=== PATIENT | female | born 1960 | race Caucasian/White ===

== ENCOUNTER → 2016-10-30 | Outpatient (CLI) | payer MEDICARE ==
[~2016-10-30] MED LIST: ALBU0.63 IH; BACL10TA PO; CALC-44 PO; CETI10TA22 PO; DOCU-27 PO; DULO60CA6 PO; ESZO2TAB33 PO; FLUT1DIS5 IH; LEVO75TA5 PO; LORA0.5T PO; METH10TA2 PO; METH5TAB2 PO; MONT10TA6 PO; MULT1TAB52 PO; OMEG10006 PO; OMEP20CA9 PO; OXYC1TAB7 PO; PROAIR HFA8.5 GM IH; PROC5TAB14 PO; PSEU120T9 PO; SENN8.6T99 PO; TOPI100T39 PO; ZOLM5TAB13 PO
--- NOTE | 2016-10-31 01:43 | PAIN ---
DATE OF SERVICE: 10/30/2016 DIAGNOSES: 1. Cervicalgia with cervical degenerative disk disease. 2. Chronic lumbar radiculopathy. 3. Chronic thoracic radiculopathy. 4. Left femoral neuropathy. 5. Right knee joint pain. HISTORY OF PRESENT ILLNESS: The patient is a 56-year-old female who returns for followup status post medication management with both methadone and oxycodone. The patient returns after a 2-month followup reporting good pain relief with her medications at this time with her neck and low back. The patient reports no significant side effects, reports that she is doing very well with about 75% improvement with the medication most times, had some increased complaints with weather changes and ____ pressure changes with the way her neck and back feels, but otherwise doing fairly well. Pain is rated as 6 on a scale of 10 that is sharp, alternating with aching. The patient reports otherwise she is doing most of her daily activities with fairly good control, ease and comfort and without difficulty sleeping at night, without any new motor or sensory deficits or other complaints. The patient's old chart was reviewed as was her current medication regimen and updated. Current review of systems is updated today as well. The patient's K-TRACS reporting has been appropriate to date as has her urinalysis. PHYSICAL EXAMINATION: VITAL SIGNS: Today shows blood pressure of 113/74, pulse 79, respirations 18, temperature 98.1 degrees Fahrenheit, height is 5 feet 5 inches, weighs 159 pounds. GENERAL: The patient is awake, alert, oriented, appropriate, very pleasant demeanor. HEENT: Shows normocephalic, atraumatic. Extraocular movements are intact and symmetrical. The patient wears eye glasses. Oral cavity shows mucous membranes moist and pink. Dentition is intact. NECK: Shows anterior throat supple without palpable lymphadenopathy noted. Swallow reflex is symmetrical. CHEST: Shows normal on inspection. Breath sounds are clear to auscultation bilaterally. HEART: Shows S1 and S2 clear. ABDOMEN: Soft, nontender, nondistended. No palpable organomegaly. No rebound or guarding demonstrated. BACK: The patient's back shows spine grossly midline. The lumbar paraspinous muscle shows some moderate tenderness with palpation diffusely as is the cervical paraspinous musculature. Again, it is the superior medial and lateral trapezius and the inferior aspect of the cervical paraspinous musculature without significant atrophy, hypertrophy or radiation of pain. PLAN: Options were discussed with the patient. At this time, we will refill the patient's methadone as she reports she has not needed any Percocet refill at this time. The patient was given instruction as well as side effects to be aware of with medication. We will follow up in approximately 90 days or sooner if necessary. CRISTIAN SOLIS MD DR: BERTHA/leonel JOB#: [id number] / [id number]
== END | disposition home or self-care (01) ==
LOC: PNCL 09:13
PROVIDERS: ATTEND Anesthesiology
DX: M50.30 Other cervical disc degeneration, unspecified cervical region (principal); M54.2 Cervicalgia; M54.16 Radiculopathy, lumbar region; M54.14 Radiculopathy, thoracic region; G57.22 Lesion of femoral nerve, left lower limb; M25.561 Pain in right knee
CPT/HCPCS: G0463

== ENCOUNTER → 2017-01-22 | Outpatient (CLI) | payer MEDICARE ==
--- NOTE | 2017-01-23 07:04 | PAIN ---
DATE OF SERVICE: 01/22/2017 PROGRESS NOTE FOR PAIN CLINIC DIAGNOSES: 1. Cervicalgia with cervical degenerative disk disease. 2. Chronic lumbar radiculopathy. 3. Chronic thoracic radiculopathy. 4. Left femoral neuropathy. 5. Right knee joint pain. HISTORY OF PRESENT ILLNESS: The patient is a 56-year-old female who returns for followup status post medication management with both methadone and Percocet. The patient reports she has been doing fairly well with this, has been on a very stable steady regimen with about 70-75% improvement with medications and without specific side effects. The patient is still using her spinal cord stimulator with good results, reports she is having some difficulty charging it on some days, but other days, it will charge just fine. The patient reports no new motor or sensory deficits or other complaints, still pain in the low back, neck, shoulders, bilateral lower extremities, more on the right than the left without significant deficits. The patient reports she is doing well with the medications, again no side effects, reports her pain is a 6 on a scale of 10 currently overall. PHYSICAL EXAMINATION: VITAL SIGNS: The patient's blood pressure is 110/74, pulse 91, respirations are 20, temperature is 97.9 degrees Fahrenheit. Height is 5 feet 5 inches, weight is 148 pounds. GENERAL: The patient is awake, alert, oriented, appropriate, has a very pleasant demeanor. HEENT: Shows normocephalic, atraumatic. Extraocular movements are intact and symmetrical. Oral cavity, mucous membranes are moist and pink. Dentition is intact. NECK: Shows anterior throat supple without palpable lymphadenopathy noted. Swallow reflex is symmetrical. Neck shows good rotational motion both laterally as well as extension and flexion without significant tenderness. CHEST: Shows normal with inspection. Breath sounds clear to auscultation bilaterally. HEART: Shows S1 and S2 clear. No murmurs auscultated. ABDOMEN: Soft, nontender, nondistended. No palpable organomegaly is noted. BACK: Shows spine grossly in the midline with a normal appearing thoracic kyphosis and mild flattening of the lumbar lordotic curvature. Well-healed surgical scarring is noted in the lumbar distribution from spinal cord stimulator placement, easily palpable stimulator battery over the right posterior gluteus. Paraspinous musculature in the cervical as well as the thoracic and lumbar distribution shows some diffuse tenderness, but without specific radiation, atrophy, hypertrophy or trigger points. PLAN: Options were discussed with the patient. At this time, the patient's old chart was reviewed as was her current medication regimen and updated. Current review of systems updated today as well. We will refill the patient's methadone as well as Percocet with instructions and side effects to be aware of discussed. The patient also will check with [facility] for evaluation of her spinal cord stimulator if the charging issue becomes more problematic. The patient will be given a 90-day prescription for the medications with instructions and side effects to be aware of discussed. Follow up in 90 days or sooner if necessary. CRISTIAN SOLIS MD DR: BERTHA/leonel JOB#: [id number] / [id number]
== END | disposition home or self-care (01) ==
LOC: PNCL 09:08
PROVIDERS: ATTEND Anesthesiology
DX: M50.30 Other cervical disc degeneration, unspecified cervical region (principal); M54.16 Radiculopathy, lumbar region; M54.14 Radiculopathy, thoracic region; G62.9 Polyneuropathy, unspecified; M25.561 Pain in right knee
CPT/HCPCS: 99212

== ENCOUNTER → 2017-07-09 | Outpatient (CLI) | payer MEDICARE ==
[~2017-07-09] MED LIST changes: +DOCU-109 PO; -DOCU-27 PO; +ESZO2TAB21 PO; -ESZO2TAB33 PO; -TOPI100T39 PO; +TOPI100T42 PO
--- NOTE | 2017-07-09 12:40 | PAIN ---
DATE OF SERVICE: 07/09/2017 DIAGNOSES: 1. Cervicalgia with cervical degenerative disk disease. 2. Chronic lumbar radiculopathy. 3. Chronic thoracic radiculopathy. 4. Left femoral neuropathy. 5. Right knee joint pain. HISTORY OF PRESENT ILLNESS: The patient is a 57-year-old female, who returns for followup status post medication management with both methadone and oxycodone. The patient reports she has been doing fairly well with this, has been on very stable regimen with medication, but approximately a 75% improvement overall with the medications without significant side effects. The patient reports occasional constipation, but is well controlled with increased hydration and occasional [id number] laxatives or stool softeners. The patient is having some spasming pain in the mid back and low back, as well as her neck. The patient reports her neck is her chief complaint and main source of pain with her chronic pain syndromes, the patient reports increased with activity, standing, walking, changing positions; better with lying down, but reports it awakens her about every 3 hours at night from sleep. She has to reposition, apply heat, take pain medication, get out of bed, reposition to get back to sleep, but she is able to get back to sleep. She is not able to forget what is causing the pain exactly, again multiple etiologies of pain involved. The patient reports significant pain across the upper back, mid back, low back, shoulders and neck. It has been worse with radiation to bilateral upper extremities. Also, bilateral radiation to the lower extremities, somewhat worse on the left than the right, also chronic knee pain on the right side with ambulation much worse with climbing steps and standing and walking. The patient reports pain as a 9 on a scale of 10 at its worst, is a 5 on average, is 5 at least as well. The patient reports it is an aching, sharp, shooting, cramping, stabbing and can be constant at times, again decreased significantly with her current regimen of methadone and current regimen of oxycodone, which she takes only sparingly and usually less than 1 a day. PHYSICAL EXAMINATION: VITAL SIGNS: The patient's blood pressure is 113/45, pulse 58, respirations 18, temperature 98.9 degrees Fahrenheit. Height is 5 feet 5 inches, weighs 145 pounds. GENERAL: The patient is awake, alert, oriented, appropriate, very pleasant demeanor. HEENT: Shows normocephalic, atraumatic. Extraocular movements are intact and symmetrical. Oral cavity, mucous membranes are moist and pink. Dentition is intact. NECK: Shows anterior throat supple without palpable lymphadenopathy noted. Swallow reflex is symmetrical. CHEST: Shows normal on inspection. Breath sounds are clear to auscultation bilaterally. HEART: Shows S1 and S2 clear. No murmurs auscultated. ABDOMEN: Soft, nontender, nondistended. No palpable organomegaly. There is no rebound or guarding demonstrated. BACK: The patient's back shows grossly midline spine with some slight flattening of cervical lordotic curvature. Thoracic kyphotic curvature is normal and lordotic lumbar curvature is slightly flattened as well. With palpation, cervical paraspinous musculature shows some moderate tenderness throughout the middle and low cervical paraspinous musculature bilaterally as well as in the superior, medial and lateral trapezius with palpation, but without radiation of pain. The patient shows good rotational motion of cervical spine but somewhat guarded with extension with significant pain reported in the base of the neck and shoulders, but not with forward flexion. Right and left lateral rotation past 45 degrees is intact, but very guarded as well and deliberate but able to rotate past 45 degrees right and left. The patient's low back shows moderate tenderness with palpation in the lumbar paraspinous musculature throughout as in the middle and lower thoracic paraspinous muscle, which appears symmetrical but have moderate tenderness with palpation and very firm musculature, equal in appearance bilaterally. The patient shows no tenderness over the spinous processes, sacrum or sacroiliac region. Shows good rotation and motion of the lumbar spine with some minor tenderness with extension, but not with forward flexion, right and left lateral rotation which she performs greater than 10 degrees bilaterally. EXTREMITIES: Show upper extremity deep tendon reflexes 1+ in the biceps and triceps tendons. Motor exam is approximately 4 on a scale of 5 with heel seat sander strength, but equal and symmetrical. Biceps and triceps flexion again 3-4 on a scale of 5 on the left and 5/5 on the right. Peripheral pulses are 2+ radial distribution. No peripheral edema is noted. Lower extremities show deep tendon reflexes 1+ in the patellar and tendo calcaneus tendons are equal. Motor exam is approximately 4 on a scale of 5, but symmetrical with dorsiflexion, extension, quadriceps and hamstring flexion and fairly equal bilaterally. Peripheral pulses are 1+ in the posterior tibial and dorsalis pedis pulses. No peripheral edema is noted in the lower extremities as well. The patient is walking with a significant limp favoring her right lower extremity when she ambulates, not using any assistive devices, but she is holding on to the wall, chair rails, etc. when she is ambulating and walking, changing positions, difficult with standing from a sitting position and vice versa. The patient noticeably leans on her left leg to release weight off her right leg when she is standing and walking, slightly interthoracic hunched position with walking as well. Options were discussed with the patient and the patient's old chart was reviewed as her current medication regimen updated. Current review of systems updated today as well. We will refill the patient's methadone as well as oxycodone for a 3-month prescription, also Cymbalta and baclofen, which she does well with each of these without significant side effects. The patient was cautioned as medication regimen as well as side effects to be aware of each of the medications. The patient has had appropriate K-TRACS reporting as well as appropriate urinalysis to date and again has been on fairly stable regimen with reasonable control about 75% of her pain with medications as long as her activity is not too significant or repetitive. The patient will follow up in approximately 90 days or sooner as necessary. CRISTIAN SOLIS MD DR: BERTHA/leonel JOB#: [id number] / [id number]
== END | disposition home or self-care (01) ==
LOC: PNCL 10:15
PROVIDERS: ATTEND Anesthesiology
DX: M50.30 Other cervical disc degeneration, unspecified cervical region (principal); M54.16 Radiculopathy, lumbar region; M54.14 Radiculopathy, thoracic region; G62.9 Polyneuropathy, unspecified; M25.561 Pain in right knee; K59.00 Constipation, unspecified; G89.29 Other chronic pain
CPT/HCPCS: G0463

== ENCOUNTER → 2017-10-01 | Outpatient (CLI) | payer MEDICARE ==
--- NOTE | 2017-10-01 12:44 | PAIN ---
DATE OF SERVICE: 10/01/2017 DIAGNOSES: 1. Cervicalgia with cervical degenerative disk disease. 2. Chronic lumbar radiculopathy. 3. Chronic thoracic radiculopathy. 4. Left femoral neuropathy. 5. Right knee joint pain. HISTORY OF PRESENT ILLNESS: The patient is a 57-year-old female who returns for followup status post medication management with methadone and oxycodone, also taking baclofen for muscle relaxation and Cymbalta. The patient reports she is doing quite well and has been on very stable regimen with about a 75%-80% improvement with her pain in her neck, shoulders, mid back, upper back, low back, still with some increased pain as she has been doing some increased activity at home, getting things prepared from the summer into the winter, taking care of yard work, landscaping and doing some raking of leaves and general duties about the house, which has been increasing her pain to some extent. The patient reports she is controlling it to a good extent with the medications and without side effects. The patient reports her pain as a 9 on a scale of 10 at its worst, is a 6-7 on average, is a 5 today and is 5 at its least. It is a stabbing, aching, sharp, tight with constant, severe, unbearable pain in the knee. The mid back, shoulders and neck show some aching and stabbing pain occasionally, but again worse with activity, which she has increased slightly. Otherwise, the patient reports she is doing fairly well. She is sleeping fairly well at night, sleeps about 6-7 hours a night. Occasionally, the pain awakens her from sleep, but only if she has had a very active day prior to that. She can reposition, take pain medication or get out of bed and she is able to get back to sleep most days. The patient reports no new motor or sensory deficits, no new bowel or bladder incontinence or other complaints. PHYSICAL EXAMINATION: VITAL SIGNS: The patient's blood pressure is 137/94, pulse 83, respirations 18, temperature 97.8 degrees Fahrenheit. She is 5 feet 5 inches, weighs 146 pounds. GENERAL: The patient is awake, alert, oriented, appropriate, very pleasant demeanor. HEENT: Head shows normocephalic, atraumatic. The patient wears eyeglasses. Extraocular movements are intact, symmetrical. Oral cavity: Mucous membranes moist and pink. Dentition is intact. NECK: Shows anterior throat supple without palpable lymphadenopathy noted. Swallow reflex is symmetrical. CHEST: Shows normal with inspection. Breath sounds are clear to auscultation bilaterally. HEART: Shows S1, S2 clear. No murmurs auscultated. ABDOMEN: Soft, nontender, nondistended. No palpable organomegaly is noted. No rebound or guarding demonstrated. BACK: Shows spine grossly in midline. Slight exaggeration of thoracic kyphosis, some mild flattening lumbar lordotic curvature. Paraspinous musculature no previous lesions, rashes or abnormalities noted in the skin. The patient's neck shows moderate tenderness to palpation of the cervical paraspinous musculature, but is symmetrical in appearance. No radiation, no trigger points. The patient has good rotational motion of the cervical spine, both laterally as well as extension and flexion without significant pain reported. EXTREMITIES: Lower extremities show deep tendon reflexes at 1+ in the patellar and tendo calcaneus tendons. Motor exam is strong with 5/5 dorsiflexion, extension and equal. No peripheral edema is noted. Peripheral pulses are 1+ posterior tibial and 2+ in the radial distribution bilaterally. No peripheral edema bilaterally in the upper or lower extremities. Options were discussed with the patient. The patient's old chart was reviewed as her current medication regimen and updated. Current review of systems is updated today as well. We will refill the patient's methadone as well as oxycodone. The patient will require 1 month prescription of oxycodone as she has not been using this, otherwise she has been trying to cut down on it fairly significantly again with no side effects. The patient was given instruction as well as side effects to be aware of with each of her medications. A 90-day supply for baclofen and Cymbalta was given and she can use a mail order service for these as well. The patient will follow up in approximately 90 days or sooner, was counseled on activity level as well as medication regimen and side effects to be aware of. CRISTIAN SOLIS MD DR: BERTHA/leonel JOB#: [id number] / [id number]
== END | disposition home or self-care (01) ==
LOC: PNCL 09:40
PROVIDERS: ATTEND Anesthesiology
DX: M50.30 Other cervical disc degeneration, unspecified cervical region (principal); G57.22 Lesion of femoral nerve, left lower limb; M25.561 Pain in right knee
CPT/HCPCS: G0463

== ENCOUNTER → 2018-04-29 | Outpatient (CLI) | payer MEDICARE | END | disposition home or self-care (01) | LOC: PNCL 11:30 | DX: M50.10 Cervical disc disorder with radiculopathy, unspecified cervical region (principal); M25.561 Pain in right knee; G62.9 Polyneuropathy, unspecified | CPT/HCPCS: G0463 ==

== ENCOUNTER → 2018-08-05 | Outpatient (CLI) | payer MEDICARE ==
[2017-10-18 10:30] VITALS: BP 133/74
[~2018-08-05] MED LIST changes: +BUDE180A IH; +LEVO500T59 PO; +NICO2LOZ BC
--- NOTE | 2018-08-05 22:04 | PAIN ---
DATE OF SERVICE: 08/05/2018 DIAGNOSES: 1. Cervicalgia with cervical degenerative disk disease. 2. Chronic lumbar radiculopathy. 3. Chronic thoracic radiculopathy. 4. Left femoral neuropathy. 5. Right knee joint pain with a spinal cord stimulator therapy. HISTORY OF PRESENT ILLNESS: The patient is a 58-year-old female who returns for followup status post spinal cord stimulator therapy as well as medication management with methadone, Percocet, also Cymbalta and baclofen. The patient reports she has been doing fairly well with this, has been on very stable regimen without significant side effects. The patient reports she is not taking the Cymbalta anymore, has not been taking it for over a month, cannot tell any difference without it and therefore, we will just discontinue it. The patient reports otherwise the baclofen is doing well as is the Percocet and methadone, which she is taking on schedule. The patient reports pain has reduced significantly with this from 8 to a 5, at 8 is worse, 6 on average and a 5 at its least and is a 5 today. The patient reports pain in the base of the neck and shoulders, upper back, mid back, low back, bilateral lower extremities, especially in the right side and some right knee pain that is also involved. The patient reports she has a cramping, stabbing pain radiating, becoming constant, is sharp at times, shooting in all these areas, especially in the low back. The patient reports her spinal cord stimulator; however, is still working well. She is having no difficulty charging it, so basically getting good paraesthesia, but is not controlling the pain 100%. The patient reports she has difficulty sleeping at night, but not secondary to the pain as always. She has not been able to sleep well for years, sleeps about 4 hours at a time. The patient reports no new motor or sensory deficits, no bowel or bladder incontinence or other complaints. PHYSICAL EXAMINATION: VITAL SIGNS: The patient's blood pressure 112/71, pulse 88, respirations 18, temperature 97.1 degrees Fahrenheit. Height 5 feet 5 inches, weighs 153 pounds. GENERAL: The patient is awake, alert, oriented, appropriate, very pleasant demeanor. HEENT: Head is normocephalic, atraumatic. Extraocular movements are intact and symmetrical. Oral cavity: Mucous membranes moist and pink. Dentition is intact. NECK: Shows anterior throat supple without palpable lymphadenopathy noted. Swallow reflex symmetrical. CHEST: Shows normal with inspection. Breath sounds clear to auscultation bilaterally. HEART: Shows S1, S2 clear. No murmurs auscultated. ABDOMEN: Soft, nontender, nondistended. No palpable organomegaly is noted. No rebound or guarding demonstrated. BACK: Shows spine grossly in the midline. Normal appearing thoracic kyphosis and lumbar lordotic curvature. Lumbar paraspinous muscle shows symmetrical on inspection. Well-healed surgical scarring is noted. With palpation shows some moderate tenderness only diffusely in the low lumbar distribution, also tenderness in the cervical distribution diffusely in the inferior aspect as well, but without radiation. The patient has good rotational motion of cervical spine with some minor tenderness with extension, but not with forward flexion, right or left lateral rotation. Lumbar spine shows some minor tenderness with right and left lateral rotation as well as extension and flexion, but again only to a minor extent. EXTREMITIES: The patient's extremities show upper extremity deep tendon reflexes 2+ in the biceps, triceps tendons. Lower extremities are 1+ patellar and tendo calcaneus. Peripheral pulses are 1+ posterior tibial bilaterally. No peripheral edema is noted. Options were discussed with the patient. The patient's old chart was reviewed as her current medication regimen updated. Current review of systems updated today as well. We will proceed with refilling patient's methadone as well as baclofen and Percocet with instructions, side effects to be aware of with each of the medication. The patient has had appropriate K-TRACS reporting as well as appropriate urinalysis to date. We will refill this for a 90-day period. The patient will follow up in approximately 90 days or sooner if necessary. CRISTIAN SOLIS MD DR: BERTHA/leonel JOB#: [id number] / [id number]
== END | disposition home or self-care (01) ==
LOC: PNCL 10:17
PROVIDERS: ATTEND Anesthesiology
DX: M50.30 Other cervical disc degeneration, unspecified cervical region (principal); M54.16 Radiculopathy, lumbar region; M54.14 Radiculopathy, thoracic region; M25.561 Pain in right knee
CPT/HCPCS: G0463

== ENCOUNTER → 2019-01-12 | Outpatient (CLI) | payer MEDICARE ==
[2017-10-18 10:30] VITALS: BP 133/74
[~2019-01-12] MED LIST changes: +ALBU2.5V8 IH; +OMEP20CA10 PO; -OMEP20CA9 PO; -PROAIR HFA8.5 GM IH
--- NOTE | 2019-01-12 22:06 | PAIN ---
DATE OF SERVICE: 01/12/2019 PROGRESS NOTE FOR PAIN CLINIC DIAGNOSES: 1. Cervicalgia with cervical degenerative disk disease. 2. Chronic lumbar radiculopathy with chronic thoracic radiculopathy and spinal cord stimulation therapy. 3. Left femoral neuropathy. 4. Right knee joint pain. HISTORY OF PRESENT ILLNESS: The patient is a 58-year-old female who returns for followup status post medication management with both methadone and oxycodone, also baclofen. The patient reports she has been doing very well, has been on a very stable regimen. She is trying decrease the use of her Percocet and has been able to do that fairly successfully, still has 4 to 5 tablets left and it has been about 6 months since the prescription was written of 100 tablets. The patient reports still pain in the base of the neck and shoulder as well as the low back and mid back. Spinal cord stimulator is functioning well. She is keeping this charged with good stimulation and good distribution of stimulation in the low back. The patient reports her pain is a 7 on a scale of 10 at its worst, 5 on average, 5 at its least and is a 5 today. The patient reports it is aching, dull and tight in the back as well as the neck and a constant pain in the back of the neck and shoulders, sometimes disturbs her from sleep, but not every night. The patient reports no new motor or sensory deficits, no new bowel or bladder incontinence. Again, no side effects with the medication. The patient reports overall about 75-80% improvement with the medications where she function, increased distance walking and doing work activities, household activities and traveling with greater ease and comfort with the pain medicine, but without significant side effects. PHYSICAL EXAMINATION: VITAL SIGNS: The patient's blood pressure is 131/82, pulse 76, respirations 18, temperature is 97.8 degrees Fahrenheit, height is 5 feet 5 inches, weighs 144 pounds. GENERAL: The patient is awake, alert, oriented, appropriate, very pleasant demeanor. HEENT: Head shows normocephalic, atraumatic. Extraocular movements are intact and symmetrical. Oral cavity: Mucous membranes are moist and pink. Dentition is intact. NECK: Shows anterior throat supple without palpable lymphadenopathy noted. Swallow reflex is symmetrical. CHEST: Shows normal on inspection. Breath sounds are clear to auscultation bilaterally. HEART: Shows S1, S2 clear. No murmurs auscultated. ABDOMEN: Soft, nontender, nondistended. No palpable organomegaly is noted. No rebound or guarding demonstrated. BACK: Shows spine grossly in the midline. Normal cervical lordotic curvature and thoracic kyphotic curvature, some minor flattening of lumbar lordotic curvature. Cervical paraspinous muscle shows symmetrical on inspection, on palpation shows some moderate tenderness diffusely, but only diffusely in the inferior aspect of the cervical paraspinous muscles bilaterally, but without radiation and without trigger points. The patient has good rotational motion of cervical spine, both laterally as well as extension and flexion without significant pain or difficulty. Low back shows normal on inspection with paraspinous musculature, on palpation shows some moderate tenderness throughout the upper, middle and lower distribution of the paraspinous muscles bilaterally, but again without asymmetry, without trigger points and without radiation of pain bilaterally. The patient shows good rotational motion, both laterally greater than 10 degrees right and left as well as extension greater than 10 degrees, forward flexion 45 degrees without significant pain reported. EXTREMITIES: Show upper extremity deep tendon reflexes 2+ in the biceps and triceps tendons. Lower extremities are 1+ in the patellar and tendo calcaneus tendons. Motor exam is 5/5 with counselor manager strength, bicep and tricep flexion. Lower extremities show 5/5 dorsiflexion and extension. Peripheral pulses are 2+ radial and 1+ posterior tibial. No peripheral edema is noted bilaterally in any of the extremities. Options were discussed with the patient. The patient's old chart was reviewed as her current medication regimen updated. Current review of systems updated today as well. We will refill the patient's methadone as well as oxycodone and baclofen with a 90-day supply. The patient has had appropriate K-TRACS reporting as well as appropriate urinalysis to date. We will obtain a urinalysis today as well as part of routine screening. The patient will follow up at the clinic in approximately 90 days or sooner if necessary. The patient was given instructions as well as side effects to be aware of with each of the medications and will follow up as scheduled. CRISTIAN SOLIS MD DR: BERTHA/leonel JOB#: [id number] / [id number]
== END | disposition home or self-care (01) ==
LOC: PNCL 10:49
PROVIDERS: ATTEND Anesthesiology
DX: M50.30 Other cervical disc degeneration, unspecified cervical region (principal); M54.15 Radiculopathy, thoracolumbar region; M25.561 Pain in right knee
CPT/HCPCS: G0463

== ENCOUNTER → 2019-06-23 | Outpatient (CLI) | payer MEDICARE ==
[2017-10-18 10:30] VITALS: BP 133/74
[~2019-06-23] MED LIST changes: +MONT10TA49 PO; -MONT10TA6 PO
--- NOTE | 2019-06-23 10:44 | EKG ---
[facility] [address] [place] [address] Test Date: 2019-06-23 Test Time: 10:39:34 Pat Name: MARLIN LUJAN Department: Room: Gender: F Documentation Nurse: SUMANTH : 1960 Requested By: CRISTIAN SOLIS Order Number: [id number] Reading MD: Measurements Intervals [place] Rate: 80 P: 64 NV: 138 QRS: 56 QRSD: 76 T: 52 QT: 372 QTc: 433 Interpretive Statements SINUS RHYTHM NO SPECIFIC ECG ABNORMALITIES RI6.01 Unconfirmed report No previous ECG available for comparison
== END | disposition home or self-care (01) ==
LOC: EKG 10:22
PROVIDERS: ATTEND Anesthesiology
DX: F11.90 Opioid use, unspecified, uncomplicated (principal)
CPT/HCPCS: 93005

== ENCOUNTER → 2019-07-06 | Outpatient (CLI) | payer MEDICARE ==
[2017-10-18 10:30] VITALS: BP 133/74
--- NOTE | 2019-07-07 02:03 | PAIN ---
DATE OF SERVICE: 07/06/2019 PROGRESS NOTE FOR PAIN CLINIC DIAGNOSES: 1. Cervicalgia with cervical degenerative disk disease. 2. Chronic lumbar radiculopathy. 3. Chronic thoracic radiculopathy. 4. Left femoral neuropathy. 5. Right knee joint pain and with spinal cord stimulation therapy. HISTORY OF PRESENT ILLNESS: The patient is a 59-year-old female, who returns for followup status post medication management with both methadone and oxycodone. The patient reports she had been doing very well with this and only taking oxycodone very sparingly, but is not getting much sleep at night and methadone that decreased her pain significantly by about 70%, but without any side effects. The patient reports still some difficulty sleeping, but her spinal cord stimulators are main complaint today, is not holding the charge well. She is having to update her bobbin hauler once to twice a day, although it is getting good paresthesia coverage in the low back and left lower extremity. It is still not holding the charge well. Her [employer] rep was present today to check the machine and is at its end of life or close with the battery generator. The patient reports pain is 7 on a scale of 10 at its worst in the past week, 5 on average, 4 at its least and is a 5 today. It is aching, stabbing, burning in the low back, radiating, constant, sometimes in the lower leg, again better with medications without side effects and with spinal cord stimulator, but not completely relieved. The patient reports no new bowel or bladder incontinence. No new side effects or other complaints. PHYSICAL EXAMINATION: VITAL SIGNS: The patient's blood pressure 136/96, pulse 91, respirations are 18, temperature 98.2 degrees Fahrenheit, height is 5 feet 5 inches, and weighs 138 pounds. GENERAL: The patient is awake, alert, oriented, appropriate, very pleasant demeanor. HEENT: Shows normocephalic, atraumatic. Extraocular movements are intact and symmetrical. Oral cavity: Mucous membranes moist and pink. Dentition is intact. NECK: Shows anterior throat supple without palpable lymphadenopathy noted. Swallow reflex symmetrical. CHEST: Shows normal on inspection. Breath sounds are clear to auscultation bilaterally. HEART: Shows S1, S2 clear. No murmurs auscultated. ABDOMEN: Soft, nontender, nondistended. No palpable organomegaly is noted. No rebound or guarding demonstrated. BACK: Shows spine grossly in the midline. Normal-appearing thoracic kyphosis and lumbar lordotic curvature is slightly flattened. A well-healed surgical scar is noted. Easily palpable spinal cord stimulator battery is noted on the left low back superior gluteus without tenderness and is getting some minor mobility. EXTREMITIES: The patient's lower extremities show deep tendon reflexes 1+/4 in the patellar and tendo calcaneus tendons. Motor exam is strong with dorsiflexion and extension rated at 5/5 and equal. Peripheral pulses are 1+ posterior tibia. No peripheral edema is noted. Options were discussed with the patient. The patient's old chart was reviewed as her current medication regimen updated. Current review of systems updated today as well. We will make arrangements to surgically replace the spinal cord stimulator generator. The patient was also given refill medications, methadone and oxycodone and baclofen with instructions and side effects to be aware of. The patient has had appropriate K-TRACS ____ as well as appropriate urinalysis to date. We will make the prescription for 3-month period. The patient will return to clinic for a stimulator battery replacement that is as scheduled. CRISTIAN SOLIS MD DR: BERTHA/leonel JOB#: [id number] / [id number]
== END | disposition home or self-care (01) ==
LOC: PNCL 10:08
PROVIDERS: ATTEND Anesthesiology
DX: M54.16 Radiculopathy, lumbar region (principal); M54.14 Radiculopathy, thoracic region; M50.30 Other cervical disc degeneration, unspecified cervical region; M25.561 Pain in right knee; M40.294 Other kyphosis, thoracic region; M40.46 Postural lordosis, lumbar region
CPT/HCPCS: G0463

== ENCOUNTER 2019-07-30 09:44 | Day surgery (SDC) | payer MEDICARE ==
[~2019-07-30 09:44] MED LIST changes: +BACITRACIN 50,000 UNIT in IV NORMAL SALINE 500ML BAG 500 ML IRR ONE; +HYDROmorphone 2 MG/ML VIAL IV PRN; +IOHEXOL 300 MG/ML 50 ML VIAL. ONE; +IV RINGERS,LACTATED 1000ML 1,000 ML IV SCH; +LIDOCAINE 1% PF 2 ML VIAL. ID PRN; +MORPHINE SULFATE 2 MG/ML VIAL. IV PRN; +ONDANSETRON PF 4 MG/2 ML VIAL. IV PRN; +PROCHLORPERAZINE 10 MG/2 ML VIAL. IV PRN; +fentaNYL PF VIAL 100 MCG/2 ML VIAL IV PRN
[2019-07-30] MEDS ORDERED: LIDOCAINE 2% PF 5 ML VIAL. ONE (10:19)
[2019-07-30] MEDS ORDERED: PROPOFOL 20 ML IV ONE ×2 (10:19→11:33)
[2019-07-30] MEDS ORDERED: MIDAZOLAM HCL/PF 2 MG/2 ML VIAL. ONE (11:31)
[2019-07-30] MEDS ORDERED: KETAMINE HCL IN NACL, ISO-OSM 50 MG/5 ML SYRINGE ONE (11:32)
[2019-07-30] MEDS ORDERED: LIDOCAINE 1% Multi-Dose 20 ML VIAL. INJ ONE (11:40)
[2019-07-30] MEDS ORDERED: LIDOCAINE 1%/EPI 1:100,000 20 ML VIAL. INJ ONE (11:40)
--- NOTE | 2019-07-30 12:09 | DISCH ---
DISCHARGE INSTRUCTIONS Condition on Discharge Condition on Discharge: Stable Activity After Discharge Activity Instructions for Disc: Activity as tolerated, Avoid exertion Bathing Instructions: Shower-keep dressing dry Lifting Instructions after Dis: No heavy lifting Driving Instructions after Dis: Do not drive today Diet after Discharge Diet after Discharge: Regular Contacting the DR. after DC Call your doctor for: Concerns you may have CRISTIAN SOLIS MD Jul 30, 2019 12:09
--- NOTE | 2019-07-30 12:13 | PDOC4 ---
OPERATIVE NOTE Date: Date: Jul 30, 2019 Pre-Op Diagnosis: chronic radiculopathy-lumbar Post-Op Diagnosis: same Procedure Performed: SCS generator replacement/removal Surgeon: Ocsar Anesthesia Type: MAC IV sedation Blood Loss: 2.5ml Specimans Obtained: original SCS generator Findings: see dictation Complications: none Operative Note: see dictation CRISTIAN SOLIS MD Jul 30, 2019 12:13
[2019-07-30 12:45] VITALS: BP 118/64
--- NOTE | 2019-07-30 13:14 | PAIN ---
DATE OF SERVICE: 07/30/2019 PREOPERATIVE DIAGNOSES: Chronic lumbar radiculopathy with chronic degenerative disk disease and low back pain. POSTOPERATIVE DIAGNOSES: Chronic lumbar radiculopathy with chronic degenerative disk disease and low back pain. PROCEDURE: Spinal cord stimulator generator battery replacement and removal of old unit. BLOOD LOSS: Less than 5 mL. COMPLICATIONS: None. ANESTHESIA: IV sedation, monitored anesthetic care. COMPLICATIONS: None. DESCRIPTION OF PROCEDURE: The patient was consented for spinal cord stimulator generator removal and replacement with risks discussed including, but not limited to bleeding, infection, possibility of poor pain control with new generator. Postoperative wound dehiscence and postoperative pain as well as poor results regarding long-term pain control with the new generator. The patient understands and wished to proceed. The patient was taken to operating room #1 and under her own power placed in the prone position with pressure points padded. ASA monitors placed. Breath sounds clear bilaterally. IV sedation was started. The patient's back and left posterior gluteus was then prepped using a Betadine prep using 3 minutes for drying time before draping. The patient was then draped in the usual sterile fashion. Using a sterile technique, the area of the left posterior-superior gluteus to the area of the preexisting spinal cord stimulator generator was examined using 1% lidocaine with 1:200,000 epinephrine. The transverse view of anesthetic was used subcutaneously and still with a transversely without difficulty using a #15 blade scalpel was incised through the anesthetized skin through the subcutaneous layer into the fascia exposing the pocket, containing the spinal cord stimulator generator. The generator was removed using both blunt and dull dissection. Local hemorrhage was controlled using pressure and irrigation. The old battery resisting stimulator generator was then expressed from the pocket without difficulty. Pocket was examined and showed no abnormalities using an Nathaniel wrench supplied with the [employer] product. The locked down screws were loosened on the old generator, wires were removed intact and shown to be in very good condition x 2. The pocket was again examined and then irrigated with bacitracin irrigation x 3 reexamined with no local hemorrhage noted throughout. New generator was then examined and the wires were placed in the battery and using the same torque screwdriver supplied with [employer] unit that was locked into place. Impedance was checked twice with good impedance at all leads verified. At this time, the pocket was re-examined and fitted with new stimulator generator, which fit into the pocket in the excellent fashion. The pocket was then closed using 2-0 absorbable Vicryl interrupted stitches over the fascial layers and then 3-0 running suture for skin closure. Steri-Strips, Mastisol and island dressing were then applied. The patient tolerated procedure well, had no immediate complications and was transferred to the recovery room in good awake and in stable condition. CRISTIAN SOLIS MD DR: BERTHA/leonel JOB#: [id number] / [id number]
--- NOTE | 2019-08-02 11:18 | OP ---
DATE OF SURGERY: 07/30/2019 PREOPERATIVE DIAGNOSES: Chronic lumbar radiculopathy with chronic degenerative disk disease and low back pain. POSTOPERATIVE DIAGNOSES: Chronic lumbar radiculopathy with chronic degenerative disk disease and low back pain. PROCEDURE: Spinal cord stimulator generator battery replacement and removal of old unit. BLOOD LOSS: Less than 5 mL. COMPLICATIONS: None. ANESTHESIA: IV sedation, monitored anesthetic care. COMPLICATIONS: None. DESCRIPTION OF PROCEDURE: The patient was consented for spinal cord stimulator generator removal and replacement with risks discussed including, but not limited to bleeding, infection, possibility of poor pain control with new generator. Postoperative wound dehiscence and postoperative pain as well as poor results regarding long-term pain control with the new generator. The patient understands and wished to proceed. The patient was taken to operating room #1 and under her own power placed in the prone position with pressure points padded. ASA monitors placed. Breath sounds clear bilaterally. IV sedation was started. The patient's back and left posterior gluteus was then prepped using a Betadine prep using 3 minutes for drying time before draping. The patient was then draped in the usual sterile fashion. Using a sterile technique, the area of the left posterior-superior gluteus to the area of the preexisting spinal cord stimulator generator was examined using 1% lidocaine with 1:200,000 epinephrine. The transverse view of anesthetic was used subcutaneously and still with a transversely without difficulty using a #15 blade scalpel was incised through the anesthetized skin through the subcutaneous layer into the fascia exposing the pocket, containing the spinal cord stimulator generator. The generator was removed using both blunt and dull dissection. Local hemorrhage was controlled using pressure and irrigation. The old battery resisting stimulator generator was then expressed from the pocket without difficulty. Pocket was examined and showed no abnormalities using an Nathaniel wrench supplied with the [employer] product. The locked down screws were loosened on the old generator, wires were removed intact and shown to be in very good condition x 2. The pocket was again examined and then irrigated with bacitracin irrigation x 3 reexamined with no local hemorrhage noted throughout. New generator was then examined and the wires were placed in the battery and using the same torque screwdriver supplied with [employer] unit that was locked into place. Impedance was checked twice with good impedance at all leads verified. At this time, the pocket was re-examined and fitted with new stimulator generator, which fit into the pocket in the excellent fashion. The pocket was then closed using 2-0 absorbable Vicryl interrupted stitches over the fascial layers and then 3-0 running suture for skin closure. Steri-Strips, Mastisol and island dressing were then applied. The patient tolerated procedure well, had no immediate complications and was transferred to the recovery room in good awake and in stable condition. CRISTIAN SOLIS MD DR: BERTHA/nts JOB#: [id number] / [id number]
== END 2019-07-30 13:18 | disposition home or self-care (01) ==
LOC: SURG 09:44
PROVIDERS: ATTEND Anesthesiology
DX: M51.16 Intervertebral disc disorders with radiculopathy, lumbar region (principal); E03.9 Hypothyroidism, unspecified; G43.909 Migraine, unspecified, not intractable, without status migrainosus; E78.00 Pure hypercholesterolemia, unspecified; F17.210 Nicotine dependence, cigarettes, uncomplicated; F15.90 Other stimulant use, unspecified, uncomplicated; F19.90 Other psychoactive substance use, unspecified, uncomplicated; Z88.6 Allergy status to analgesic agent; Z88.8 Allergy status to other drugs, medicaments and biological substances; Z98.890 Other specified postprocedural states; Z79.899 Other long term (current) drug therapy; Z86.73 Personal history of transient ischemic attack (TIA), and cerebral infarction without residual deficits; Z87.01 Personal history of pneumonia (recurrent); Z90.710 Acquired absence of both cervix and uterus; Z90.721 Acquired absence of ovaries, unilateral
CPT/HCPCS: 63685; C1713; C1820; J0690; J2001; J2250; J2704; J3490; J7040; Q9967

== ENCOUNTER → 2019-08-06 | Outpatient (CLI) | payer MEDICARE ==
[2019-07-30 12:45] VITALS: BP 118/64
[~2019-08-06] MED LIST changes: -BACITRACIN 50,000 UNIT in IV NORMAL SALINE 500ML BAG 500 ML IRR ONE; -HYDROmorphone 2 MG/ML VIAL IV PRN; -IOHEXOL 300 MG/ML 50 ML VIAL. ONE; -IV RINGERS,LACTATED 1000ML 1,000 ML IV SCH; -LIDOCAINE 1% PF 2 ML VIAL. ID PRN; -MORPHINE SULFATE 2 MG/ML VIAL. IV PRN; -ONDANSETRON PF 4 MG/2 ML VIAL. IV PRN; -PROCHLORPERAZINE 10 MG/2 ML VIAL. IV PRN; -fentaNYL PF VIAL 100 MCG/2 ML VIAL IV PRN
--- NOTE | 2019-08-06 13:12 | PAIN ---
DATE OF SERVICE: 08/06/2019 PROGRESS NOTE FOR PAIN CLINIC DIAGNOSES: 1. Cervicalgia with cervical degenerative disk disease. 2. Chronic lumbar radiculopathy. 3. Chronic thoracic radiculopathy. HISTORY OF PRESENT ILLNESS: The patient is a 59-year-old female who returns for followup for postop check today for previous spinal cord stimulator generator replacement 1 week ago. The patient reports she is doing very well, stimulation is very well and good coverage in the low back and legs. The patient reports no difficulty, with the wound has been open to air, now with Steri-Strips still remaining. She has had no drainage. No significant tenderness. No erythema around the wound. The patient reports she is doing quite well. The patient reports still some pain in the low back and the legs. It is aching, dull, sharp, shooting, stabbing at times, but not different from prior to the replacement of the generator. The patient reports it awakens her from sleep occasionally about every 5-6 hours with the back pain, but it has been normal. She is still working with the [employer] community health program representative to retune the stimulator as well. The patient reports no new changes. The pain is worst 8 on a scale of 10 at past week, 5 on average, 4 at its least and is a 4 today. PHYSICAL EXAMINATION: VITAL SIGNS: The patient's blood pressure 113/72, pulse 90, respirations 18, temperature 97.8 degrees Fahrenheit, height is 5 feet 5 inches and weighs 138 pounds. GENERAL: The patient is awake, alert, oriented, appropriate, very pleasant demeanor. HEENT: Shows normocephalic, atraumatic. Extraocular movements are intact and symmetrical. Oral cavity: Mucous membranes are moist and pink. NECK: Shows anterior throat supple without palpable lymphadenopathy noted. Swallow reflex symmetrical. CHEST: Shows normal on inspection. Breath sounds are clear. HEART: Shows S1, S2 clear. BACK: Shows spine grossly in midline. Normal appearing thoracic kyphosis and lumbar lordotic curvatures. Paraspinous muscle shows symmetrical on inspection, on palpation shows some mild tenderness diffusely bilaterally without radiation. EXTREMITIES: The patient's lower extremities show deep tendon reflexes at 1+ patellar and tendo calcaneus tendons. Motor exam is strong with 5/5 dorsiflexion, extension, quadriceps and hamstring flexion. The patient's surgical site on the left gluteus shows Steri-Strips intact, no erythema, no tenderness, no drainage. Mobile generator with palpation, but nontender. PLAN: Options are discussed with the patient. The patient's old chart was reviewed as her current medication regimen updated. Current review of systems updated today as well. We will have the patient to continue with activity as tolerated. The patient's stimulator will be re-programmed as scheduled with [employer] community health program representative. Also, maintain a watch on the wounds and Steri-Strips tapes and healing well without need for immediate further followup, only as needed. CRISTIAN SOLIS MD DR: BERTHA/leonel JOB#: [id number] / [id number]
== END | disposition home or self-care (01) ==
LOC: PNCL 10:24
PROVIDERS: ATTEND Anesthesiology
DX: M50.10 Cervical disc disorder with radiculopathy, unspecified cervical region (principal)
CPT/HCPCS: G0463

== ENCOUNTER → 2019-10-22 | Outpatient (CLI) | payer MEDICARE ==
[~2019-10-22] MED LIST changes: -CETI10TA22 PO; +CETI10TA24 PO; -OMEP20CA10 PO; +OMEP20CA16 PO; +[UNRECOGNIZED DRUG - CODE] SQ
--- NOTE | 2019-10-22 13:36 | PAIN ---
DATE OF SERVICE: 10/22/2019 PROGRESS NOTE FOR PAIN CLINIC DIAGNOSES: 1. Cervicalgia with cervical degenerative disk disease. 2. Chronic lumbar radiculopathy. 3. Chronic thoracic radiculopathy. 4. Left femoral neuropathy. 5. Right knee joint pain with osteoarthritis. HISTORY OF PRESENT ILLNESS: The patient is a 59-year-old female who returns for followup status post medication management with both methadone and oxycodone. The patient is also taking baclofen for muscle relaxation. The patient reports she has been on very stable regimen, is very pleased with her progress with about a 75-80% improvement with medications overall with no specific side effects. The patient reports the pain is 7 on a scale of 10 at its worst, 5 on a scale of 10 at its average last week, 3 at its least and is a 3 today. The patient reports it is aching and tight in the neck and shoulders, upper back, mid back, low back, also some on the right knee. The patient reports cramping, stabbing in the base of neck and shoulders, radiating pain occasionally into the front of the thighs as well as in the shoulders and arms. The patient reports, however, her spinal cord stimulator controlling the mid and low back pain fairly consistently. No new motor or sensory deficits. No new bowel or bladder incontinence. The patient reports it awakens her from sleep occasionally. She had a bout of bronchitis a few months ago and has had some rib pain from that as well, which is keeping her up at night, but doing better. The patient reports she has increased her distance walking, doing household activities as well as sleeping better for the most part. The patient reports again no specific side effects with the medications. PHYSICAL EXAMINATION: VITAL SIGNS: The patient's blood pressure is 125/74, pulse 80, respirations 18, temperature 98.5 degrees Fahrenheit, weight is 141 pounds. GENERAL: The patient is awake, oriented, appropriate, very pleasant demeanor. HEENT: Shows normocephalic, atraumatic. Extraocular movements are intact and symmetrical. Oral cavity: Mucous membranes moist and pink. Dentition is intact. NECK: Shows anterior throat supple without palpable lymphadenopathy noted. Swallow reflex symmetrical. CHEST: Shows normal on inspection. Breath sounds are clear bilaterally. HEART: Shows S1, S2 clear. No murmurs auscultated. ABDOMEN: Soft, nontender, nondistended. BACK: Shows spine grossly in the midline. Slight exaggeration of thoracic kyphosis, some minor flattening of cervical lordotic curvature and lumbar lordotic curvature. Spinal cord stimulator is easily palpable with some surgical scarring noted. Cervical paraspinous muscle shows symmetrical on inspection, with palpation shows some moderate tenderness diffusely bilaterally going diffusely without specific radiation, without specific trigger points. The patient does show good rotational motion of cervical spine, both laterally as well as extension and flexion is slightly guarded, but with full rotation with slow deliberate rotation. EXTREMITIES: The patient's upper extremities show deep tendon reflexes at 2+ in the biceps and triceps tendons. Motor exam is strong with histopath tech strength rated at 5/5 as is bicep and tricep flexion. Lower extremities show deep tendon reflexes 1+ in the patellar and tendo calcaneus tendons. Motor exam is 5/5 with dorsiflexion, extension, quadriceps and hamstring flexion. Peripheral pulses are 1+ posterior tibial, 2+ radial bilaterally. No peripheral edema is noted upper or lower extremities. Options were discussed with the patient. The patient's old chart was reviewed as her current medication regimen updated. Current review of systems updated today as well. We will proceed with refill of the patient's methadone as well as oxycodone and baclofen. The patient was given instruction as well as side effects to be aware of each of these medications. The patient has had appropriate K-TRACS reporting as well as appropriate urinalysis to date. We will have urinalysis drawn today for a normal routine screening and renewal of the patient's narcotic contract. The patient was given a copy of this as well. The patient will follow up in approximately 90 days or sooner as necessary and to give refill prescriptions for that time. Given instructions and side effects to be aware of that. CRISTIAN SOLIS MD DR: BERTHA/leonel JOB#: [id number] / [id number]
== END | disposition home or self-care (01) ==
LOC: PNCL 07:54
PROVIDERS: ATTEND Anesthesiology
DX: M50.30 Other cervical disc degeneration, unspecified cervical region (principal); M54.16 Radiculopathy, lumbar region; M54.14 Radiculopathy, thoracic region; M17.11 Unilateral primary osteoarthritis, right knee
CPT/HCPCS: G0463

== ENCOUNTER → 2020-03-10 | Outpatient (CLI) | payer MEDICARE ==
[2019-12-14 14:46] VITALS: BP 112/69
[~2020-03-10] MED LIST changes: +BACL20TA PO; +DICY20TA3 PO; +EPIPEN 2-P0.3 MG/0.3 IM; +GADOTERATE 7.5 MMOL/15ML VIAL. IVP ONE; +IBUP-1060 PO; +IMMU10VI8 IJ; +INUL2TAB4 PO; +LACT1POW11 PO; +METH10TA PO; +MOME17SP NS; +OSCAL PO; +[UNRECOGNIZED DRUG - OTHER] PO
--- NOTE | 2020-03-10 14:13 | RAD ---
MRI Brain with and without contrast History:Double vision Technique: Multiplanar, multi sequential pre and postcontrast MR imaging was performed of the brain. Comparison: None Findings: There is motion degradation. Allowing for motion, there is no obvious evidence of recent infarct or cytotoxic edema. The ventricles, sulci, and cisterns are within normal limits in size and configuration. There is no significant midline shift, intraaxial mass effect, or focal abnormal extra-axial fluid collection. There is multifocal [id number] T2 and FLAIR hyperintense signal abnormality of the supratentorial parenchyma bilaterally, findings greatest of the bilateral olea radiata, also some involvement of the bilateral basal ganglia, also some small foci of the thalami. Some foci have a somewhat perpendicular orientation relative to the lateral ventricles. There is no nodular parenchymal or leptomeningeal enhancement. 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 There is moderate to severe T2 and FLAIR hyperintense signal abnormality of the criss, no associated enhancement. There is preservation of the major intracranial flow-voids at the skull base. The cerebellar tonsils are normal in location. There is no significant abnormality of the pineal gland or small pituitary gland. There is mucous retention cyst at the floor of the sphenoid sinus 1.3 cm AP. There is minimal fluid of the right mastoid air cells posteriorly. There is preserved marrow signal of the clivus. Impression: 1. There is no obvious evidence of recent infarct or abnormal intracranial enhancement, exam degraded by motion. There is multifocal T2 and FLAIR hyperintense signal abnormality of the criss and supratentorial parenchyma. Nonspecific findings could be due to chronic microvascular ischemic disease especially if risk factors such as hypertension or diabetes. Sequela of inflammatory demyelinating disease is not excluded in a patient this age. Regarding the criss, appearance could also be seen with osmotic demyelination syndrome in the appropriate clinical setting although uncommon. 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 Electronically signed by: Papa Alonso MD (03/10/2020 2:10 PM) [id number]
== END | disposition home or self-care (01) ==
LOC: MRI 10:05
PROVIDERS: ATTEND Family Medicine
DX: I63.81 Other cerebral infarction due to occlusion or stenosis of small artery (principal); J34.1 Cyst and mucocele of nose and nasal sinus
CPT/HCPCS: 70553; A9575

== ENCOUNTER → 2021-08-09 | Outpatient (CLI) | payer MEDICARE ==
[2019-12-14 14:46] VITALS: BP 112/69
[~2021-08-09] MED LIST changes: -CETI10TA24 PO; +CETI10TA74 PO; -DULO60CA6 PO; +DULO60CA7 PO; -GADOTERATE 7.5 MMOL/15ML VIAL. IVP ONE; +METH-570 PO; +METH-572 PO; -METH10TA2 PO; -METH5TAB2 PO; +MULT-445 PO; -MULT1TAB52 PO
--- NOTE | 2021-08-09 10:21 | KCIC ---
INDICATION: Screening for osteopenia/osteoporosis. Reason: HIP OSTEOARTHRITIS, HX OF TOTAL HYSTERECT HECTOR, MENOPAUSAL DISORDER / Spl. Instructions: / History: PT HAS PAIN STIMULATOR IN BACK COMPARISON: None. TECHNIQUE: Bone densitometry was performed through the distal forearm and proximal femur. IMPRESSION: Distal forearm: BMD: 0.45 T-Score: -2.3 Range: On the border between osteopenia and osteoporosis Proximal Femur: BMD: 0.79 T-Score: -1.2 Range: Osteopenic World Health Organization Criteria for Bone Density: T-Score: > -1.0: Normal Range < -1.0 to -2.5: Osteopenic Range < -2.5: Osteoporotic Range Electronically signed by: Shoaib Mcintyre MD (08/09/2021 10:18 AM) [id number]
== END ==
LOC: KCIC DEXA 08:04
PROVIDERS: ATTEND Nurse Practitioner Family
DX: M85.89 Other specified disorders of bone density and structure, multiple sites (principal); M17.0 Bilateral primary osteoarthritis of knee; Z90.710 Acquired absence of both cervix and uterus; Z78.0 Asymptomatic menopausal state
CPT/HCPCS: 77080; 77081

== ENCOUNTER → 2021-11-14 | Outpatient (CLI) | payer MEDICARE ==
[2019-12-14 14:46] VITALS: BP 112/69
[~2021-11-14] MED LIST changes: +DICY20TA PO; -DICY20TA3 PO; -MOME17SP NS; +MOME17SP5 NS
--- NOTE | 2021-11-14 10:23 | RAD ---
EXAM: MRI LEFT HIP DATE: 11/14/2021 8:48 AM CLINICAL INDICATION: Reason: left hip pain / Spl. Instructions: / History: COMPARISON: None. TECHNIQUE: Multiplanar, multisequence MR imaging of the left hip was performed without IV contrast. FINDINGS: T1 marrow signal is preserved. No fracture or osteonecrosis. No hip joint effusion. Moderate increased signal and thickening of the gluteus minimus tendon with trochanteric bursal edema . Gluteus medius is intact. Hamstrings and iliopsoas are intact. Mild chondral thinning superiorly. No discrete labral tear. Narrowing of the ischiofemoral space with mild edema within the quadratus femoris muscle. Grossly normal muscle signal and bulk without fatty atrophy. Limited survey of the visceral contents of the pelvis within normal limits. IMPRESSION: 1. Moderate gluteus minimus tendinosis. 2. Mild trochanteric bursal edema, bursitis. 3. Mild left hip joint osteoarthritis. 4. Mild quadratus femoris muscle edema with narrowing of the ischiofemoral space may be seen with is chiofemoral impingement. Electronically signed by: Miguel Saba MD (11/14/2021 10:21 AM) [id number]
== END ==
LOC: MRI 08:49
PROVIDERS: ATTEND Nurse Practitioner Family
DX: M16.12 Unilateral primary osteoarthritis, left hip (principal); M70.52 Other bursitis of knee, left knee; Y93.89 Activity, other specified
CPT/HCPCS: 73721